=== PATIENT | male | born 1960 | race Caucasian/White ===

== ENCOUNTER → 2018-10-26 | Outpatient (CLI) | payer BC ==
[2018-10-26 13:38] LABS: Blood Urea Nitrogen 11 mg/dL (9-20)
--- NOTE | 2018-10-26 14:42 | CT ---
EXAMINATION TYPE: CT chest w con DATE OF EXAM: 10/26/2018 COMPARISON: Chest x-ray 10/19/2018 HISTORY: Sternal mass CT DLP: 578.80 mGycm, Automated exposure control for dose reduction was used. CONTRAST: Performed injected with 100 ml mL of Isovue 300. TECHNIQUE: Axial images were obtained at 5 mm thick sections. Reconstructed images are reviewed on [employer] computer in the coronal plane. FINDINGS: Portion of the thyroid visualized is normal. No suspicious lung nodules or focal infiltrates are present. No enlarged mediastinal or hilar adenopathy is evident. The ascending aorta diameter at the level o f the main pulmonary artery is 3.8 cm. The main pulmonary artery diameter at the bifurcation is 2.9 cm. Attention is paid to the sternum. Sternal appears normal. No masses are evident. Sternal manubrial, s ternal clavicular, and xiphoid process regions appear normal. No retrosternal masses are evident. The xiphoid process does curve anteriorly if this is the location of the palpable abnormality. Limited CT sections are obtained through the upper abdomen. Abdomen is essentially unremarkable. IMPRESSIONS: 1. Normal Chest CT.
== END | disposition home or self-care (01) ==
LOC: RADCTMAIN 13:02
PROVIDERS: ATTEND Internal Medicine
DX: R22.2 Localized swelling, mass and lump, trunk (principal); Z88.0 Allergy status to penicillin
CPT/HCPCS: 82565; 84520; 71260; 36415; Q9967

== ENCOUNTER → 2021-04-02 | Outpatient (CLI) | payer BC ==
[2021-04-02 17:29] LABS: African American GFR (CKD) >90 (>60 ml/min/1.73 sqM); Blood Urea Nitrogen 18 mg/dL (9-20); Non-African American GFR(CKD) >90 (>60 ml/min/1.73 sqM)
--- NOTE | 2021-04-03 08:54 | CT ---
EXAMINATION TYPE: CT chest w con DATE OF EXAM: 04/02/2021 COMPARISON: HISTORY: Lung nodule Hx tumor removal from lung CT DLP: 554.80 mGycm Automated exposure control for dose reduction was used. TECHNIQUE: CT scan of the chest is performed with IV Contrast, patient injected with 100 mL of Isovue 300. FINDINGS: LUNGS: There is a stable nodule along the right major fissure the right lung. There is a 9 mm stable pleural-based nodule in the right lung posteriorly. Metallic densities are again demonstrated the right upper and lower lobes. There is no lung mass or concerning nodule. There is no evidence of pneumonia, pneumothorax or pleural effusion. The trachea and bronchial tree are patent. MEDIASTINUM: Mediastinal or hilar adenopathy seen. There is normal in size and there is no pericardial effusion. The intrathoracic aorta main pulmonary trunk is normal in appearance. OTHER: No acute osseous abnormality. Aggressive osseous lesions seen. Degenerative changes demonstrated in the included spine. Thyroid gland is unremarkable. Cholecystectomy clips seen in the upper abdomen. Partially seen low attenuating lesion in the right kidney middle pole posterior aspect IMPRESSION: 1. Stable nodules in the right lung as described in body of report. 2. Partially seen low attenuating lesion the right kidney middle pole posterior aspect could be relat ed to volume averaging versus cyst or other renal mass, right kidney ultrasound or contrast-enhanced abdominal CT may be of additional benefit.
== END | disposition home or self-care (01) ==
LOC: RADCTMAIN 16:46
PROVIDERS: ATTEND Internal Medicine
DX: R91.8 Other nonspecific abnormal finding of lung field (principal); R91.1 Solitary pulmonary nodule; Z88.0 Allergy status to penicillin
CPT/HCPCS: 82565; 84520; 71260; 36415; Q9967

== ENCOUNTER → 2023-02-24 | Outpatient (CLI) | payer BC ==
[2023-02-24 16:17] LABS: African American GFR (CKD) >90 (>60 ml/min/1.73 sqM); Blood Urea Nitrogen 12 mg/dL (9-20); Non-African American GFR(CKD) >90 (>60 ml/min/1.73 sqM)
--- NOTE | 2023-02-27 20:07 | CT ---
EXAMINATION TYPE: CT chest w con CT DLP: 888 mGycm, Automated exposure control for dose reduction was used. DATE OF EXAM: 02/24/2023 4:51 PM COMPARISON: Multiple CT chest with most recent 05/16/2022. CLINICAL INDICATION:Male, 62 years old with history of R91.1 SOLITARY PULMONARY NODULE; PHH, h/o lung nodule and h/o right renal and prostate CA TECHNIQUE: Multiple axial images were obtained through the chest following the administration of 100 cc of Isovue 300. Coronal and sagittal reformats reviewed. FINDINGS: LUNGS/ PLEURA: No pleural effusion, pneumothorax, or focal consolidation. Redemonstration of right up per lobe medial metallic densities. Right basilar pleural parenchymal scarring redemonstrated. Stable pleural-based nodular density in the posterior right upper lobe measuring 8 mm (series 3, image 20). Stable 4 mm nodular density along the right major fissure (series 4, image 30). No new or enlarging pulmonary nodules. AIRWAY: Patent and unremarkable.. HEART: Size within normal limits. No pericardial effusion. MEDIASTINUM: No evidence of adenopathy. VASCULATURE: No aortic aneurysm. MUSCULOSKELETAL: No acute osseous abnormalities. No aggressive osseous lesion. SOFT TISSUES/LYMPH NODES: Unremarkable. LOWER NECK: No significant findings. UPPER ABDOMEN: Diffuse low-attenuation to the liver parenchyma. Postcholecystectomy changes. IMPRESSION: 1. Stable pulmonary nodules dating back to 2019 and considered benign. 2. Hepatic steatosis.
== END | disposition home or self-care (01) ==
LOC: RADCTMAIN 15:24
PROVIDERS: ATTEND Internal Medicine
DX: K76.0 Fatty (change of) liver, not elsewhere classified (principal); R91.8 Other nonspecific abnormal finding of lung field
CPT/HCPCS: 82565; 84520; 71260; 36415; Q9967

== ENCOUNTER → 2024-08-02 | Outpatient (CLI) | payer BC ==
[2024-08-02 18:02] LABS: African American GFR (CKD) >90 (>60 ml/min/1.73 sqM); Blood Urea Nitrogen 10 mg/dL (9-20); Non-African American GFR(CKD) >90 (>60 ml/min/1.73 sqM)
--- NOTE | 2024-08-02 19:00 | CT ---
EXAMINATION TYPE: CT chest w con DATE OF EXAM: 08/02/2024 6:37 PM COMPARISON: 02/24/2023 and dating back to 2019. CLINICAL INDICATION: Male, 64 years old with history of R91.1 PULMONARY NODULE; PH, Follow up for pu lmonary nodule. Priors in pacs. TECHNIQUE: Multiple axial images were obtained through the chest. Sagittal and coronal reformats were created for review. MIP was performed on a separate workstation. Contrast used:100ml mL of Isovue 300 with IV Contrast (None if empty) Oral contrast used: (None if empty) CT DLP: 489.10 mGycm, Automated exposure control for dose reduction was used. FINDINGS: LUNGS/ PLEURA: No pleural effusion, pneumothorax, or focal consolidation. Redemonstration of right upper lobe medial metallic densities. Right basilar pleural parenchymal scarring redemonstrated. Stable pleural-based nodular density in th e posterior right upper lobe measuring 8 mm (series 3 image 17.). Stable 4 mm nodular density along the right major fissure (series 3 image 38.). No new or enlarging p ulmonary nodules. AIRWAY: Patent and unremarkable.. HEART: Size within normal limits. No pericardial effusion. MEDIASTINUM: No evidence of adenopathy. VASCULATURE: No aortic aneurysm. MUSCULOSKELETAL: No acute osseous abnormalities. No aggressive osseous lesion. SOFT TISSUES/LYMPH NODES: Unremarkable. LOWER NECK: No significant findings. UPPER ABDOMEN: Diffuse low-attenuation to the liver parenchyma. The gallbladder surgically absent. Sp lenule is present. IMPRESSION: 1. Stable pulmonary nodules dating back to 2019 and are considered benign. 2. Hepatic steatosis. [facility], , 08/02/2024 6:57 PM
== END | disposition home or self-care (01) ==
LOC: RADCTMAIN 17:07
PROVIDERS: ATTEND Internal Medicine
DX: K76.0 Fatty (change of) liver, not elsewhere classified (principal); R91.8 Other nonspecific abnormal finding of lung field
CPT/HCPCS: 82565; 84520; 71260; 36415; Q9967